=== PATIENT | male | born 1960 | race Caucasian/White ===

== ENCOUNTER 2017-04-14 09:46 | Emergency (ER) | payer MEDICAID ==
[~2017-04-14] VITALS: Ht 160 cm; Wt 63.0 kg
[2017-04-14 09:49] VITALS: BP 128/81
[2017-04-14] MEDS ORDERED: ACETAMINOPHEN 500MG TABLET PO ONE (12:30)
== END 2017-04-14 13:04 | disposition home or self-care (01) ==
LOC: ER 12:15
DX: J03.90 Acute tonsillitis, unspecified (principal); R63.3 Feeding difficulties
CPT/HCPCS: 99283